=== PATIENT | male | born 1965 | race Native Hawaiian/Other Pacific Islander ===

== ENCOUNTER 2016-08-28 14:35 | Emergency (ER) | payer BC ==
[~2016-08-28] VITALS: Ht 172.7 cm; Wt 83.9 kg
[~2016-08-28 14:35] MED LIST: HYDR25TA60 PO; RAMI10CA PO
== END 2016-08-28 16:40 | disposition home or self-care (01) ==
LOC: ED 14:35
DX: J40 Bronchitis, not specified as acute or chronic (principal)
CPT/HCPCS: 99282; J1100

== ENCOUNTER 2019-11-22 13:22 | Outpatient (CLI) | payer BC, OTHER | END 2019-11-22 19:52 | disposition home or self-care (01) | LOC: LAB 13:22 | DX: Z11.59 Encounter for screening for other viral diseases (principal); R20.8 Other disturbances of skin sensation; R06.02 Shortness of breath; R50.9 Fever, unspecified | CPT/HCPCS: 87635; G2023; U00003 ==